=== PATIENT | male | born 2000 | race Caucasian/White ===

== ENCOUNTER 2024-01-13 18:26 | Emergency (ER) | payer OTHER ==
[~2024-01-13] VITALS: Ht 175.3 cm; Wt 85.7 kg
[2024-01-13 18:38] VITALS: BP_SYST 139; PULSE 77; RESP 18; TEMP 98.7; O2SAT 97
[2024-01-13 19:29] LABS: BASOPHILS % (AUTO) 0.2 % (0.0-2.0); EOSINOPHILS # (AUTO) 0.2 K/uL (0.0-0.4); EOSINOPHILS % (AUTO) 1.5 % (0.0-4.0); HEMATOCRIT 48.9 % (36-54); HEMOGLOBIN 16.6 g/dL (14.0-18.0); LYMPHOCYTES # (AUTO) 1.2 K/uL (1.0-5.5); LYMPHOCYTES % (AUTO) 9.4 % (20.5-51.5); MEAN CORPUSCULAR HEMOGLOBIN 31 pg (27-31); MEAN CORPUSCULAR HGB CONC 34 % (32-36); MEAN CORPUSCULAR VOLUME 91 fL (79.0-98.0); MONOCYTES # (AUTO) 0.6 K/uL (0.0-1.0); MONOCYTES % (AUTO) 4.5 % (1.7-9.3); NEUTROPHILS # (AUTO) 10.4 K/uL (1.8-7.7); NEUTROPHILS % (AUTO) 84.4 % (40.0-70.0); PLATELET COUNT (AUTO) 262 K/uL (130-430); RED BLOOD CELL COUNT(AUTO) 5.36 MIL/uL (4.2-6.2); RED CELL DISTRIBUTION WIDTH 12.8 % (9.0-15.0); WHITE BLOOD COUNT (AUTO) 12.3 K/uL (4.8-10.8)
[2024-01-13 19:38] LABS: CALCIUM 8.8 mg/dL (8.4-11.0); CREATININE 0.96 mg/dL (0.55-1.30); POTASSIUM 4.5 mmol/L (3.5-5.1)
[2024-01-13] MEDS ORDERED: IBUP-1969 PO (21:08)
[2024-01-13 21:15] VITALS: BP_SYST 135; PULSE 80; RESP 18; TEMP 98.7; O2SAT 98
== END 2024-01-13 21:15 | disposition home or self-care (01) ==
LOC: SED 18:26
DX: S43.401A Unspecified sprain of right shoulder joint, initial encounter (principal); R55 Syncope and collapse; Z79.899 Other long term (current) drug therapy; W01.0XXA Fall on same level from slipping, tripping and stumbling without subsequent striking against object, initial encounter; Y93.89 Activity, other specified; Y92.89 Other specified places as the place of occurrence of the external cause; Y99.8 Other external cause status
CPT/HCPCS: 36415; 71045; 73030; 80048; 85025; 93005; 99285